=== PATIENT | female | born 1930 | race Two or more races ===

== ENCOUNTER 2018-05-18 15:02 | Inpatient (IN) | payer MEDICARE, MEDICAID ==
[~2018-05-18] VITALS: Ht 165.1 cm; Wt 61.9 kg
[~2018-05-18 15:02] MED LIST: CEPH250S PO; DRON400T PO; FLUT100I IN; FURO20TA3 PO; LEVA0.6310 IN; LEVO25TA6 PO; METO-169 OR; NORTRIPTYLINE HCL PO; OMEP20CA74 PO; PANT40TA2 PO; POTA10TA51 PO; PRO125RS PR; SUCR1TAB PO; TIOT1AER2 IN; [UNRECOGNIZED DRUG - CODE] OR
[2018-05-18 15:47] LABS: Basophils # (auto) 0 uL; Basophils % (auto) 0.1 % (0.0-2.0); Eosinophils # (auto) 0 uL; Eosinophils % (auto) 0.1 % (0.0-7.0); Hematocrit 36.7 % (36.0-46.0); Hemoglobin 12.2 g/dL (12.2-16.2); Lymphocytes # (auto) 0.8 uL; Mean Corpuscular Hgb Conc. 33.1 g/dL (32.0-36.0); Mean Corpuscular Volume 84.6 fL (80.0-100.0); Monocytes # (auto) 0.6 uL; Monocytes % (auto) 8.6 % (0.0-12.0); Neutrophils # (auto) 5.9 uL; Neutrophils % (auto) 80.2 % (37.0-80.0); Nucleated Red Blood Cells % 0.1 %; Platelet Count (auto) 290 10^3/uL (140-450); Red Blood Cells 4.34 10^6/uL (4.0-5.20); Red Cell Distribution Width 14.3 % (11.8-14.3); White Blood Cell 7.4 10^3/uL (4.4-10.8)
[2018-05-18 16:05] LABS: Albumin 3.4 g/dL (3.4-5.0); BUN/Creatinine Ratio 15.3; Calcium 8.8 mg/dL (8.5-10.1); Potassium 3.4 mmol/L (3.5-5.1)
[2018-05-18 16:10] LABS: Bilirubin, Total 0.9 mg/dL (0.2-1.0); Total Protein 7.7 g/dL (6.4-8.2)
[2018-05-18] MEDS ORDERED: SODIUM CHLORIDE 0.9% 500 ML IV ONE (16:13)
[2018-05-18] MEDS ORDERED: traMADol HCL 50 MG TAB PO PRN (17:45)
[2018-05-18] MEDS ORDERED: LACTULOSE 20Gm/30ML SOLN PO PRN (17:45)
[2018-05-18] MEDS ORDERED: MORPHINE SULF INJ 2 MG/ML SYRINGE 1ML IV PRN (17:45)
[2018-05-18] MEDS ORDERED: NITROGLYCERIN 0.4 MG SL TAB SL PRN (17:45)
[2018-05-18] MEDS ORDERED: LORazepam 0.5 MG TAB PO PRN (17:45)
[2018-05-18] MEDS ORDERED: TEMAZEPAM 15 MG CAP PO PRN (17:45)
[2018-05-18] MEDS ORDERED: ONDANSETRON HCL 4 MG/2 ML VIAL IV PRN (17:45)
[2018-05-18] MEDS: SODIUM CHLORIDE 0.9% 1,000 ML IV SCH ×2 (21:03→22:17)
[2018-05-18] MEDS: METOPROLOL TARTRATE 25 MG TAB PO SCH ×2 (22:17→23:44)
[2018-05-18] MEDS ORDERED: NALBUPHINE HCL 10 MG/1ml INJECTION IV ONE (23:00)
[2018-05-19] MEDS: LORazepam 2MG/ML-1ML VIAL IV PRN ×3 (00:30→21:00)
[2018-05-19] MEDS: SODIUM CHLORIDE 0.9% 1,000 ML IV SCH (04:17)
[2018-05-19] MEDS ORDERED: diphenhdrAMINE HCL 50 MG/1 ML VL IV ONE ×2 (08:00→23:15)
[2018-05-19] MEDS ORDERED: HALOPERIDOL LACTATE 5 MG/ML INJ VIAL IV ONE (08:00)
[2018-05-19 08:11] LABS: Urine Bacteria FEW /hpf (None Seen); Urine Blood TRACE /uL (Negative); Urine Hyaline Cast FEW /lpf (0 - 2); Urine Mucus FEW (None Seen); Urine Specific Gravity 1.015 (1.001-1.035); Urine WBC 19 /hpf (0 - 5)
[2018-05-19] MEDS ORDERED: HALOPERIDOL LACTATE 5 MG/ML INJ VIAL IM ONE (08:30)
[2018-05-19] MEDS: ENOXAPARIN SOD 40 MG/0.4 ML SYRINGE SC SCH (09:43)
[2018-05-19] MEDS: ASPirin 81 mg TAB PO SCH (09:43)
[2018-05-19] MEDS: METOPROLOL TARTRATE 25 MG TAB PO SCH ×2 (09:43→22:00)
[2018-05-19] MEDS: PANTOPRAZOLE 40 MG TAB PO SCH (09:43)
[2018-05-19] MEDS ORDERED: CEFTRIAXONE SODIUM 2 GM in D5W 5% 50 ML IV ONE (10:00)
[2018-05-19 10:22] LABS: Calcium 8.4 mg/dL (8.5-10.1); Potassium 3.4 mmol/L (3.5-5.1)
[2018-05-19 10:26] LABS: INR 0.97 (0.9-1.15); Partial Thromboplastin Time 31.5 sec (23.78-33.04); Prothrombin Time 10.4 sec (9.27-12.13)
[2018-05-19] MEDS ORDERED: METOPROLOL TARTRATE 1MG/1ML-5ML VIAL IV PRN (10:30)
[2018-05-19 10:36] LABS: Free T4 (Free Thyroxine) 1.1 ng/dL (0.89-1.76)
[2018-05-19 10:37] LABS: Folate (Folic Acid) 7.9 ng/mL (5.38-24)
[2018-05-19] MEDS ORDERED: FUROSEMIDE 20 MG/2 ML VIAL IV ONE (11:45)
--- NOTE | 2018-05-19 11:52 | NUR ---
Midline Placement: Patient educated on need for midline placement. All risks and benefits explained and all questions and concerns addresses prior to procedure. 18g/10cm midline inserted via right basilic vein using Ultrasound. Sterile technique utilized. Blood return obtained from the lumen and flushed easily with NS using proper technique. Midline secured with saline lock; biodisc and occlusive dressing applied. Primary RN notified. Midline lot # [id number].
[2018-05-19] MEDS ORDERED: CYANOCOBALAMIN (B-12) 1000 MCG/1 ML VIAL IM ONE (16:30)
--- NOTE | 2018-05-19 17:30 | NUR ---
Patient in room 266. Vital signs within normal limits. Patient confused and unable to answer questions. Patient extremely anxious and screams at any movement. IV 22G to right wrist and Midline to left upper arm saline lock, patent, dry and intact. Downs to gravity clear yellow urine noted. O2 2L NC. Will continue to monitor patient at this time.
--- NOTE | 2018-05-19 18:10 | NUR ---
Patient family at bedside.
[2018-05-19 18:22] VITALS: BP 161/92
--- NOTE | 2018-05-19 18:30 | NUR ---
End of shift IV 22G to right wrist and Midline to left upper arm saline lock, patent, dry and intact. Downs to gravity clear yellow urine noted. O2 2L NC. Family in waiting room. Will continue to monitor patient at this time. Report to be given to night time nanny RN.
--- NOTE | 2018-05-19 19:30 | NUR ---
SHIFT OPENING NOTE RECEIVED PATIENT AWAKE, SPEECH UNCLEAR AND UNCOMPREHENSIBLE. SPEAKS ANOTHER LANGUAGE. ON 2L N/C POX 100%. NO SOB,OR DISTRESS NOTED. PAIN NOTED WHEN TOUCHING LEFT SHOULDER. MEZA CATH DRAINING CLEAR YELLOW URINE. TRISTIN MIDLINE SL AND RH 22G INFUSING NS AT 75. UPDATED HER FAMILY ON HER POC. WILL CLOSELY MONITOR.
[2018-05-19 19:53] VITALS: BP 145/89
--- NOTE | 2018-05-19 22:00 | NUR ---
AGITATION PATIENT IS VERY ALTERED BEGAN GETTING AGITATED AND SCREAMING UNCOMPREHENSIBLE WORDS AND TRYING TO GET OUT OF BED. YELLS EVERY TIME SOMEONE TOUCHES HER. IS BEGINNING TO GET COMBATIVE AND SWINGS HANDS AND ATTEMPTS TO KICK THOSE PERFORMING CARE ON HER. PULLED OFF PULSE OX AND IS REFUSING FOR US TO PUT IT BACK ON HER. DAUGHTER AT BEDSIDE TRYING TO CALM PATIENT DOWN WITH LITTLE LUCK. WHEN OFFERING HER PAIN MEDS FOR HER SHOULDER PAIN, PATIENT REFUSES AND IS UNCOOPERATIVE. ATIVAN 0.5MG IV GIVEN PER ORDER. WILL CONTINUE TO MONITOR.
--- NOTE | 2018-05-19 22:42 | NUR ---
CONTINUES WITH AGITATION ATIVAN WAS UNSUCCESSFUL. HOSPITALIST PAGED REGARDING BEHAVIOR. AWAITING CALL BACK. DAUGHTER REMAINS AT BEDSIDE.
--- NOTE | 2018-05-19 23:05 | NUR ---
HOSPITALIST RETURNED CALL. NEW ORDERS OBTAINED FOR BENADRYL 50MG IV WILL PUT IN AND ADMINISTER.
[2018-05-20] VITALS (7 sets, daily range): BP systolic 91–160; BP diastolic 55–112
--- NOTE | 2018-05-20 03:00 | NUR ---
ROUNDS PATIENT QUIETLY LAYING IN BED SLEEPING. OCCASIONALLY AWAKES AND YELLS OUT WORDS AND MOVES AROUND IN BED, THEN FALLS BACK ASLEEP. DAUGHTER AT BEDSIDE. WILL CONTINUE TO CLOSELY MONITOR.
--- NOTE | 2018-05-20 05:30 | NUR ---
REPORT GIVEN AND CARE ENDORSED TO BERHANE DE SANTIAGO
--- NOTE | 2018-05-20 05:35 | NUR ---
ASSUMED CARE AFTER RECEIVING REPORT FROM VICKY RN. NO DISTRESS NOTED. VS STABLE. FAMILY AT BEDSIDE.
[2018-05-20 06:40] LABS: Basophils # (auto) 0 uL; Basophils % (auto) 0.2 % (0.0-2.0); Eosinophils # (auto) 0 uL; Eosinophils % (auto) 0.2 % (0.0-7.0); Hematocrit 34.5 % (36.0-46.0); Hemoglobin 11.4 g/dL (12.2-16.2); Lymphocytes # (auto) 0.8 uL; Lymphocytes % (auto) 12.9 % (10.0-50.0); Mean Corpuscular Hemoglobin 28.3 pg (28.0-32.0); Mean Corpuscular Hgb Conc. 33.1 g/dL (32.0-36.0); Mean Corpuscular Volume 85.5 fL (80.0-100.0); Monocytes # (auto) 0.6 uL; Monocytes % (auto) 9.5 % (0.0-12.0); Neutrophils # (auto) 5.1 uL; Neutrophils % (auto) 77.2 % (37.0-80.0); Platelet Count (auto) 271 10^3/uL (140-450); Red Blood Cells 4.04 10^6/uL (4.0-5.20); Red Cell Distribution Width 14.6 % (11.8-14.3); White Blood Cell 6.5 10^3/uL (4.4-10.8)
[2018-05-20 06:52] LABS: Albumin 2.6 g/dL (3.4-5.0)
[2018-05-20 06:56] LABS: BUN/Creatinine Ratio 19.4; Bilirubin, Total 0.8 mg/dL (0.2-1.0); Total Protein 6.6 g/dL (6.4-8.2)
[2018-05-20 07:07] LABS: Potassium 2.9 mmol/L (3.5-5.1)
--- NOTE | 2018-05-20 07:07 | NUR ---
CRITICAL K 2.9 CALL FROM LAB RE: CRITICAL K 2.9. PAGED THE HOSPITALIST AND RELAYED TO DAY SHIFT RN.
--- NOTE | 2018-05-20 07:12 | NUR ---
PURNIMA EDOUARD NP CALLED BACK, UPDATED ON CRITICAL K 2.9, GAVE ORDER FOR K-RIDER 40MEQ IV ONCE. WILL PUT IN THE ORDER.
[2018-05-20] MEDS ORDERED: POTASSIUM CHLORIDE 40 MEQ, LIDOCAINE 1% (LOCAL ANESTH.) 4 ML in SODIUM CHL 0.9% 100 ML IV ONE (07:15)
--- NOTE | 2018-05-20 07:30 | NUR ---
Opening Shift Note Assumed care of patient. Patient sleeping at this time. Vital signs WNL. Patient on room air. IV right hand 22G running NS at 75ml/hr. Right upper arm midline saline lock, patent, dry and intact. No S/S of distress/SOB or pain. Family Instructed on POC and to call for assist PRN. Family asking questions about possible hospice care for Patient. Will discuss with MD during rounds today. Will continue to monitor for changes Q1hr and PRN.
--- NOTE | 2018-05-20 07:40 | NUR ---
Dr. Sriram gallo at bedside. No new orders. Will continue to monitor.
[2018-05-20 08:25] LABS: Uric Acid 6.6 mg/dL (2.6-6.0)
--- NOTE | 2018-05-20 08:30 | NUR ---
Patient refused breakfast.
[2018-05-20 08:35] LABS: CRP High Sensitivity 17.9 mg/dL (< 0.3)
--- NOTE | 2018-05-20 09:30 | NUR ---
Discussed medication dosage, usage and side effects with patient family. Patient unable to comprehend. Patient refused to take PO medications. Family tired to get patient to take medications but patient still refused.
[2018-05-20] MEDS: SODIUM CHLORIDE 0.9% 1,000 ML IV SCH ×2 (09:31→22:59)
[2018-05-20] MEDS: cefTRIAXone 1GM/50ML D5W 50 ML IV SCH (09:57)
[2018-05-20] MEDS: PANTOPRAZOLE 40 MG TAB PO SCH (10:00)
[2018-05-20] MEDS: METOPROLOL TARTRATE 25 MG TAB PO SCH ×2 (10:00→21:32)
[2018-05-20] MEDS: ASPirin 81 mg TAB PO SCH (10:00)
[2018-05-20] MEDS ORDERED: FUROSEMIDE 20 MG/2 ML VIAL IV SCH (10:00)
--- NOTE | 2018-05-20 10:00 | NUR ---
WOUND CARE NOTE: PATIENT ADDED TO SKIN INTEGRITY MONITORING FOR LOW HAO SCORE OF 11. PATIENT ADMITTED TO [facility] WITH DIAGNOSIS OF NON STEMI ND. SHE IS WOUND FREE AT THIS TIME. RECOMMEND: FREQUENT TURN SCHEDULE Q2 HOURS, PRN CONDITION PERMITS WITH PRESSURE REDISTRIBUTION USING PILLOWS/WEDGES, BID/PRN APPLICATION WITH MOISTURE BARRIER CREAM, COVERING WITH OPTIFOAM GENTLE SACRAL DRESSING PREVENTATIVE, DIETARY CONSULT FOR LOW HAO, CONTINUED MONITORING BY WOUND CARE TEAM.
[2018-05-20] MEDS: ENOXAPARIN SOD 40 MG/0.4 ML SYRINGE SC SCH (10:19)
[2018-05-20] MEDS: CYANOCOBALAMIN (B-12) 1000 MCG/1 ML VIAL SUBCUT SCH (10:23)
--- NOTE | 2018-05-20 10:30 | NUR ---
Patient resting at this time will continue to monitor.
--- NOTE | 2018-05-20 12:00 | NUR ---
Dr. Baez at bedside. Downgrade to Tele. Dr. Baez will speak with Dr. Alvarez about talking to family about possible hospice care for patient later today.
--- NOTE | 2018-05-20 13:00 | NUR ---
Patient resting at this time. Family at bedside. Will continue to monitor.
--- NOTE | 2018-05-20 14:10 | NUR ---
Family states that patient is complaining of a headache and is feeling very anxious. Will give Tylenol and Ativan to patient per orders.
--- NOTE | 2018-05-20 14:20 | NUR ---
Was able to crush Tylenol and give with a small amount of water. Patient able to tolerate. Family said that if she is given a full pill she will hold it in her cheek and will not swallow it.
[2018-05-20] MEDS: LORazepam 2MG/ML-1ML VIAL IV PRN ×2 (14:57→22:57)
[2018-05-20] MEDS: ACETAMINOPHEN 500 MG TAB PO PRN (14:57)
--- NOTE | 2018-05-20 15:00 | NUR ---
Patient sleeping at this time. Family at bedside. Will continue to monitor.
--- NOTE | 2018-05-20 16:20 | NUR ---
Report given to Cele DE SANTIAGO. Patient on tele box 6. Vital signs WNL. Patient transferred to room 279B in bed by Samira INIGUEZ and myself.
--- NOTE | 2018-05-20 16:30 | NUR ---
MADI pt transferred to floor RADHA BELLAMY transferred to 279A via rney on youth nutritional monitor and portable 02. All patient medications and personal belongings transferred with patient to receiving floor. Patient care transferred to .
[2018-05-21 05:17] VITALS: BP 119/80
[2018-05-21 06:10] LABS: Basophils # (auto) 0 uL; Basophils % (auto) 0.2 % (0.0-2.0); Eosinophils # (auto) 0.1 uL; Eosinophils % (auto) 2.3 % (0.0-7.0); Hematocrit 33.9 % (36.0-46.0); Hemoglobin 11.2 g/dL (12.2-16.2); Lymphocytes # (auto) 0.6 uL; Mean Corpuscular Hemoglobin 27.8 pg (28.0-32.0); Mean Corpuscular Volume 84.4 fL (80.0-100.0); Monocytes # (auto) 0.4 uL; Monocytes % (auto) 7.7 % (0.0-12.0); Neutrophils # (auto) 4.2 uL; Neutrophils % (auto) 77.8 % (37.0-80.0); Nucleated Red Blood Cells % 0.1 %; Platelet Count (auto) 259 10^3/uL (140-450); Red Blood Cells 4.02 10^6/uL (4.0-5.20); Red Cell Distribution Width 14.6 % (11.8-14.3); White Blood Cell 5.4 10^3/uL (4.4-10.8)
[2018-05-21 06:20] LABS: Anion Gap 14 (5-15); BUN/Creatinine Ratio 27.6; Blood Urea Nitrogen 16 mg/dL (7-18); Calcium 8.1 mg/dL (8.5-10.1); Carbon Dioxide 18 mmol/L (21-32); Chloride 111 mmol/L (98-107); GFR African American 126 mL/min; GFR Non-African American 104 mL/min; Glucose 68 mg/dL (74-106); Potassium 3.1 mmol/L (3.5-5.1); Sodium 143 mmol/L (136-145)
--- NOTE | 2018-05-21 08:00 | NUR ---
Opening Shift Note Assumed care of patient, awake and alert with confusion. Respiratory even and unlabored. No S/S of distress/SOB or pain. Skin is warm and dry to touch. Instructed on POC and to call for assist PRN, will continue to monitor for changes Q1hr and PRN.
[2018-05-21] MEDS: cefTRIAXone 1GM/50ML D5W 50 ML IV SCH (08:42)
[2018-05-21] MEDS: ACETAMINOPHEN 500 MG TAB PO PRN ×2 (08:42→18:06)
[2018-05-21 09:00] VITALS: BP 165/78
[2018-05-21] MEDS: PANTOPRAZOLE 40 MG TAB PO SCH (09:23)
[2018-05-21] MEDS: ENOXAPARIN SOD 40 MG/0.4 ML SYRINGE SC SCH (09:24)
[2018-05-21] MEDS: METOPROLOL TARTRATE 25 MG TAB PO SCH ×2 (09:24→22:00)
[2018-05-21] MEDS: ASPirin 81 mg TAB PO SCH (09:24)
[2018-05-21] MEDS: CYANOCOBALAMIN (B-12) 1000 MCG/1 ML VIAL SUBCUT SCH (09:25)
[2018-05-21 13:00] VITALS: BP 148/82
[2018-05-21] MEDS ORDERED: POTASSIUM CHLORIDE 60 MEQ, LIDOCAINE 1% (LOCAL ANESTH.) 6 ML in SODIUM CHL 0.9% 500 ML IV ONE (13:15)
[2018-05-21] MEDS ORDERED: hydrALAZINE HCL 20 MG/ML VL IV SCH (14:00)
[2018-05-21] MEDS: SODIUM CHLORIDE 0.9% 1,000 ML IV SCH (14:20)
[2018-05-21 17:00] VITALS: BP 172/79
[2018-05-21] MEDS: hydrALAZINE HCL 20 MG/ML VL IV PRN (17:35)
[2018-05-21] MEDS: LORazepam 2MG/ML-1ML VIAL IV PRN (20:34)
[2018-05-21 21:26] VITALS: BP 136/63
--- NOTE | 2018-05-22 04:00 | NUR ---
IV removal IV DC'd Lt wrist with clean sterile technique, catheter fully intact. Pressure dressing applied to site. Patient tolerated well. NOTE: Iv falling out due to patient movement
[2018-05-22] MEDS: SODIUM CHLORIDE 0.9% 1,000 ML IV SCH ×2 (04:53→14:51)
[2018-05-22] MEDS: hydrALAZINE HCL 20 MG/ML VL IV PRN ×2 (05:06→21:06)
[2018-05-22] MEDS: LORazepam 2MG/ML-1ML VIAL IV PRN ×3 (05:06→21:06)
[2018-05-22 05:08] VITALS: BP 169/100
--- NOTE | 2018-05-22 06:35 | NUR ---
HEART RATE CALL FROM CLIENT SERVICE EXECUTIVE PATIENTS HEART RATE IS UP TO THE 130'S. PATIENT IN ROOM AWAKE AND CONFUSED. PATIENT HAS REMOVED HER BLANKETS AND REMOVED HER NASAL CANULA. PATIENT IS ACTIVELY COUGHING AT THIS TIME. PATIENT PLACED BACK ON NASAL CANULA AND 02 LEVEL INCREASED TO 3L. PATIENTS CURRENT O2 SATURATION IS BETWEEN 95-96%. MOIST COUGH NOTED, NON- PRODUCTIVE. SUCTION SET UP AT BEDSIDE FOR PRN USE. PATIENTS HOB IS IN UPRIGHT POSITION. BLOOD PRESSURE REASSESSED CURRENT READING IS 147/81, HR 111BPM.
[2018-05-22 06:38] VITALS: BP 147/81
[2018-05-22 07:21] LABS: Basophils # (auto) 0 uL; Basophils % (auto) 0.1 % (0.0-2.0); Eosinophils # (auto) 0.1 uL; Eosinophils % (auto) 1.4 % (0.0-7.0); Hematocrit 35.1 % (36.0-46.0); Hemoglobin 11.3 g/dL (12.2-16.2); Lymphocytes # (auto) 0.7 uL; Mean Corpuscular Hemoglobin 27.8 pg (28.0-32.0); Mean Corpuscular Hgb Conc. 32.1 g/dL (32.0-36.0); Mean Corpuscular Volume 86.6 fL (80.0-100.0); Monocytes # (auto) 0.5 uL; Monocytes % (auto) 8.1 % (0.0-12.0); Neutrophils # (auto) 4.5 uL; Neutrophils % (auto) 78.4 % (37.0-80.0); Nucleated Red Blood Cells % 0.1 %; Platelet Count (auto) 280 10^3/uL (140-450); Red Blood Cells 4.06 10^6/uL (4.0-5.20); Red Cell Distribution Width 14.9 % (11.8-14.3); White Blood Cell 5.8 10^3/uL (4.4-10.8)
--- NOTE | 2018-05-22 07:21 | NUR ---
Assumed care of patient, she is resting comfortably with no s/s of distress noted. Bed in lowest locked position. Will continue to monitor.
[2018-05-22 07:37] LABS: Potassium 3.7 mmol/L (3.5-5.1)
[2018-05-22 07:44] LABS: BUN/Creatinine Ratio 32.6; Calcium 8.4 mg/dL (8.5-10.1)
--- NOTE | 2018-05-22 07:51 | NUR ---
Patient is refusing any assistance
--- NOTE | 2018-05-22 09:05 | NUR ---
Family at bedside
[2018-05-22] MEDS: CYANOCOBALAMIN (B-12) 1000 MCG/1 ML VIAL SUBCUT SCH (09:20)
[2018-05-22] MEDS: ENOXAPARIN SOD 40 MG/0.4 ML SYRINGE SC SCH (09:20)
[2018-05-22] MEDS: cefTRIAXone 1GM/50ML D5W 50 ML IV SCH (09:20)
[2018-05-22] MEDS: PANTOPRAZOLE 40 MG TAB PO SCH (09:25)
[2018-05-22] MEDS: ASPirin 81 mg TAB PO SCH (09:25)
[2018-05-22] MEDS: METOPROLOL TARTRATE 25 MG TAB PO SCH ×2 (09:25→21:07)
--- NOTE | 2018-05-22 09:40 | NUR ---
Repositioned patient, she does not want to be touched at all. She screams. Family at bedside.
--- NOTE | 2018-05-22 11:04 | NUR ---
Dr Alvarez at bedside, he will talk with daughter about dc planning of patient
--- NOTE | 2018-05-22 13:30 | NUR ---
Patients son at bedside, patient is screaming for no reason, son says she just does that. Patient in no distress. Will continue to monitor.
--- NOTE | 2018-05-22 13:40 | NUR ---
PT IS NOT ABLE TO PARTICIPATE SAFELY IN P.T. TODAY.
--- NOTE | 2018-05-22 13:49 | NUR ---
Repositioned patient, she is very agitated. Son at bedside.
--- NOTE | 2018-05-22 14:35 | NUR ---
Patient is resting comfortably with no s/s of distress noted.
--- NOTE | 2018-05-22 14:38 | NUR ---
NUTRITION ASSESSMENT NOTES Please refer to link notes of nutrition screen form filed under the intervention section of the plan of care for further details. Est. Needs: 1500 kcal to 1850 kcal (20-25 kcal/kgBW), 60 gms to 75 gms pro (0.8-1.0 gms/kgBW). Will continue to monitor pertinent labs and reassess nutrient need prn Thank you. Addendum: 05/22/18 at [address] Amended: Links added.
--- NOTE | 2018-05-22 16:26 | NUR ---
Patient is screaming again, unable to make her comfortable. Family at bedside.
--- NOTE | 2018-05-22 18:35 | NUR ---
End of shift note Patient is restless and wont keep her gown or blankets on. No s/s of distress noted.
--- NOTE | 2018-05-22 20:00 | NUR ---
RECEIVED PATIENT IN BED, AWAKE. PATIENT IS VERY SCARED. SCREAMS WHENEVER SHE IS TOUCHED. REFUSED TO LISTEN TO INSTRUCTION. PATIENT IS CONFUSED. PATIENT REMOVES O2 AT TIMES. WILL KEEP AN EYE ON PATIENT. SIDE RAILS UP. BED ALARM IS ON. KEPT COMFORTABLE. WILL MEDICATE PATIENT FOR ANXIETY.
[2018-05-22 22:00] VITALS: BP_SYST 133; BP_SYST 185; BP_DIAS 108; BP_DIAS 76
[2018-05-22 23:03] VITALS: BP 168/82
[2018-05-23] VITALS (7 sets, daily range): BP systolic 106–162; BP diastolic 53–98
[2018-05-23] MEDS: SODIUM CHLORIDE 0.9% 1,000 ML IV SCH ×2 (04:35→19:00)
--- NOTE | 2018-05-23 05:55 | NUR ---
ON BED, ASLEEP. NO CHANGES NOTED. FOR MORE CARE AND MANAGEMENT.
[2018-05-23 08:27] LABS: Basophils # (auto) 0 uL; Basophils % (auto) 0.2 % (0.0-2.0); Eosinophils # (auto) 0.1 uL; Eosinophils % (auto) 0.8 % (0.0-7.0); Hematocrit 33.4 % (36.0-46.0); Lymphocytes # (auto) 0.7 uL; Lymphocytes % (auto) 11.2 % (10.0-50.0); Mean Corpuscular Hemoglobin 27.8 pg (28.0-32.0); Mean Corpuscular Volume 84.4 fL (80.0-100.0); Monocytes # (auto) 0.5 uL; Monocytes % (auto) 7.4 % (0.0-12.0); Neutrophils # (auto) 5.2 uL; Neutrophils % (auto) 80.4 % (37.0-80.0); Platelet Count (auto) 309 10^3/uL (140-450); Red Blood Cells 3.96 10^6/uL (4.0-5.20); Red Cell Distribution Width 14.9 % (11.8-14.3); White Blood Cell 6.5 10^3/uL (4.4-10.8)
[2018-05-23 08:37] LABS: BUN/Creatinine Ratio 28.8; Calcium 8.9 mg/dL (8.5-10.1); Potassium 3.5 mmol/L (3.5-5.1)
--- NOTE | 2018-05-23 09:20 | NUR ---
PT IS UNABLE TO PARTICIPATE IN P.T. TODAY.
[2018-05-23] MEDS: ASPirin 81 mg TAB PO SCH (11:10)
[2018-05-23] MEDS: ENOXAPARIN SOD 40 MG/0.4 ML SYRINGE SC SCH (11:11)
[2018-05-23] MEDS: CYANOCOBALAMIN (B-12) 1000 MCG/1 ML VIAL SUBCUT SCH ×2 (11:12→11:16)
[2018-05-23] MEDS: PANTOPRAZOLE 40 MG TAB PO SCH (11:15)
[2018-05-23] MEDS: METOPROLOL TARTRATE 25 MG TAB PO SCH ×3 (11:17→22:42)
[2018-05-23] MEDS: cefTRIAXone 1GM/50ML D5W 50 ML IV SCH (11:25)
--- NOTE | 2018-05-23 14:27 | NUR ---
Prior to admission pt resided at home with daughter and son [place]. Pt was on hospice services with [facility]. Pt has medical equipment already in the home due to hospice. Pt to be re-evaluated by [facility] prior to discharge and accepted back onto service once she goes home. Daughter and son are aware and in agreeance with d/c plan.Pt to be transported home by family or [facility] will arrange.
[2018-05-23] MEDS: ACETAMINOPHEN 500 MG TAB PO PRN (18:57)
[2018-05-23] MEDS: hydrALAZINE HCL 20 MG/ML VL IV PRN (18:57)
--- NOTE | 2018-05-23 19:51 | NUR ---
OPENING NOTES RECEIVED REPORT FROM DAY SHIFT NURSE. PATIENT IS ASLEEP IN BED WITH NO S/S OF DISTRESS NOTED WHILE ON 2L N/C. FAMILY IS AT BEDSIDE. MEZA CATHETER IS IN PLACE AND SECURED BED LOW BLADDER. BED IS IN LOWEST POSITION WITH SIDE RAILS UP X 2. BED BRAKES ARE LOCKED AND CALL LIGHT IS WITHIN REACH. HOB IS 30 DEGREES. WILL MONITOR Q1 HR.
--- NOTE | 2018-05-23 23:41 | NUR ---
ROUNDS PT AWAKE, SHOUTING, AND SCARED. WITH ANY MOVEMENT PT WITHDRAWALS. WILL GIVE PRN FOR ANXIETY.
[2018-05-24] MEDS: LORazepam 2MG/ML-1ML VIAL IV PRN (00:02)
--- NOTE | 2018-05-24 00:48 | NUR ---
ROUNDS PT ASLEEP WITH NO S/S OF DISTRESS NOTED AT THIS TIME. WILL MONITOR Q1 HR.
[2018-05-24] MEDS: hydrALAZINE HCL 20 MG/ML VL IV PRN (03:56)
[2018-05-24 04:39] VITALS: BP 179/93
[2018-05-24] MEDS: SODIUM CHLORIDE 0.9% 1,000 ML IV SCH (06:20)
[2018-05-24 07:27] LABS: Calcium 8.7 mg/dL (8.5-10.1); Potassium 3.2 mmol/L (3.5-5.1)
[2018-05-24 07:32] LABS: Basophils # (auto) 0 uL; Basophils % (auto) 0.2 % (0.0-2.0); Eosinophils # (auto) 0.1 uL; Eosinophils % (auto) 2.6 % (0.0-7.0); Hematocrit 36.3 % (36.0-46.0); Hemoglobin 11.6 g/dL (12.2-16.2); Lymphocytes # (auto) 0.9 uL; Lymphocytes % (auto) 17.4 % (10.0-50.0); Mean Corpuscular Hemoglobin 27.6 pg (28.0-32.0); Mean Corpuscular Hgb Conc. 31.9 g/dL (32.0-36.0); Mean Corpuscular Volume 86.4 fL (80.0-100.0); Monocytes # (auto) 0.4 uL; Monocytes % (auto) 7.9 % (0.0-12.0); Neutrophils # (auto) 3.9 uL; Neutrophils % (auto) 71.9 % (37.0-80.0); Nucleated Red Blood Cells % 0.1 %; Platelet Count (auto) 307 10^3/uL (140-450); White Blood Cell 5.4 10^3/uL (4.4-10.8)
--- NOTE | 2018-05-24 07:44 | NUR ---
endorsed care to day shift nurseMeir.
[2018-05-24 09:00] VITALS: BP 142/72
[2018-05-24] MEDS: PANTOPRAZOLE 40 MG TAB PO SCH (10:06)
[2018-05-24] MEDS: ENOXAPARIN SOD 40 MG/0.4 ML SYRINGE SC SCH (10:06)
[2018-05-24] MEDS: ASPirin 81 mg TAB PO SCH (10:06)
[2018-05-24] MEDS: METOPROLOL TARTRATE 25 MG TAB PO SCH (10:06)
[2018-05-24] MEDS: cefTRIAXone 1GM/50ML D5W 50 ML IV SCH (10:07)
[2018-05-24] MEDS ORDERED: POTASSIUM CHL 10% (20 MEQ/15ML) 15ml ORAL SOLN PO ONE (10:30)
[2018-05-24 12:00] VITALS: BP 159/77
--- NOTE | 2018-05-24 12:32 | NUR ---
PATIENT DC HOME WITH HOSPICES FEELING BETTER HER FAMILY CAME TO MEET HER ALONG WITH TRANSPORTATION PATIENT VITAL SIGNS IN NORMAL LIMITS TELE AND MIDLINE WAS REMOVE //Dillon RN
[2018-05-24 17:27] VITALS: BP 108/54
== END 2018-05-24 12:19 | disposition hospice, home (50) | DRG 190 ==
LOC: EDBD 15:02 → ER 15:02 → OVERFLOW 18:01 → DOU IN ICU 05-19 16:58 → TELE-WESTW 05-20 16:46
PROVIDERS: ADMIT Internal Medicine; ATTEND Internal Medicine
DX: I21.4 Non-ST elevation (NSTEMI) myocardial infarction (principal); G93.41 Metabolic encephalopathy; I48.92 Unspecified atrial flutter; I48.91 Unspecified atrial fibrillation; I50.9 Heart failure, unspecified; I11.0 Hypertensive heart disease with heart failure; N39.0 Urinary tract infection, site not specified; J44.9 Chronic obstructive pulmonary disease, unspecified; F03.90 Unspecified dementia, unspecified severity, without behavioral disturbance, psychotic disturbance, mood disturbance, and anxiety; S60.212A Contusion of left wrist, initial encounter; E03.9 Hypothyroidism, unspecified; E78.5 Hyperlipidemia, unspecified; E87.6 Hypokalemia; K21.9 Gastro-esophageal reflux disease without esophagitis; W18.39XA Other fall on same level, initial encounter; M19.032 Primary osteoarthritis, left wrist; Z51.5 Encounter for palliative care; Z66 Do not resuscitate; Z87.01 Personal history of pneumonia (recurrent); Z87.11 Personal history of peptic ulcer disease; Y93.89 Activity, other specified; Y92.89 Other specified places as the place of occurrence of the external cause; Y99.8 Other external cause status
CPT/HCPCS: 36415; 51702; 71045; 73030; 73110; 80048; 80053; 80061; 81001; 82550; 82607; 82746; 82962; 83036; 83735; 84439; 84443; 84484; 84550; 85025; 85610; 85652; 85730; 86141; 87081; 87086; 93005; 96361; 96365; 96372; 96375; G0378; J0696; J2001; J7060